=== PATIENT | female | born 1990 | race Caucasian/White ===

== ENCOUNTER 2022-07-21 00:34 | Day surgery (SDC) | payer OTHER, SELFPAY ==
[2022-07-14 10:45] VITALS: BMI 22.1
--- NOTE | 2022-07-14 10:53 | PC.NURSE ---
Report to the Outpatient Waiting Room, entrance under the green pavilion located off [facility], at time 1100 on date 07/21/22. OR Time: 1300. Time changes happen often and if your time is changed the preop area will call you the afternoon before. - You and your visitor will be asked to self-screen and do not enter if you have any COVID symptoms. - Only one visitor and NO children visitors are allowed at this time. - The patient visitor is requested to leave or wait in car when not with patient due to restrictions. - A mask is required within the hospital. Patients may have clear liquids (water, carbonated beverages, clear teas, apple juice) until 3 hours prior to surgery with a maximum of 20 ounces. - No food from midnight until time of surgery Take the following medications with a SIP of water the morning of surgery: SERTRALINE Medications to discontinue per physician: N/A Date to take last dose: N/A Please no make-up, nail burundian, hairspray, perfume, deodorant, or body powder the day of surgery. No jewelry (including any body piercings) or valuables the day of surgery, leave them at home. Please take a shower or bath the night before, or the morning of, surgery with an antibacterial soap. Wear comfortable, loose fitting clothing. - Jewelry must be removed prior to entering the operating room. Rings and piercings that are not removed may be cut off. - The hospital will not accept responsibility for valuables. - Please leave all valuables, including medications, at home the day of surgery. If you are going home after surgery, a licensed bulk delivery driver must drive you home. - NO public transportation without another adult. - We recommend that an adult stay with you for 24 hours following discharge. - We also recommend that you do not drive, make important decision, drink alcoholic beverages, or take any drugs that were not prescribed by your health care provider for at least 24 hours after your discharge time. Follow any additional instructions given to you from your surgeon. If you or anyone in your household have experienced Covid symptoms in the past week, please notify your surgeon or the nurse liaison at the phone number below for possible testing. Telephone instructions given to PT - YANET MERCADO and asked if any additional questions and then verbalized understanding. Patient advised to call surgeon office or pre surgery nurse liaison [phone] if any additional questions.
[2022-07-21] VITALS (9 sets, daily range): BP systolic 112–122; BP diastolic 59–72; PULSE 63–83; RESP 14–18; TEMP 36.8; O2SAT 97–100
[2022-07-21] MEDS: LACTATED RINGERS 1,000 ML 30 ML IV CONT ×2 (11:40→14:52)
--- NOTE | 2022-07-21 12:53 | SUR.PREOP ---
Discussed delay with patient. Voiced understanding.
--- NOTE | 2022-07-21 13:02 | WPDHPUPDATE1 ---
History and Physical Update Update Date/Time: 07/21/22 13:02 History and Physical has been reviewed, including an updated exam of the patient. There are NO changes in the patient's condition. Risks, benefits, and alternatives have been discussed and questions answered. Patient agrees to proceed with procedure.
--- NOTE | 2022-07-21 13:21 | P.OP_ITS ---
Procedure Note - Detailed Date of Procedure 07/21/22 Pre-op Diagnosis Pilo Micromastia,unacceptable cosmetic appearance Post-op Diagnosis Same Procedure Performed 1. Bilateral augmentation mammaplasty 2. Bilateral nipple reduction Surgeon Kong Goodrich MD Anesthesia General Findings Bilateral Ade Denise SoftTouch 375cc Right REF# [id number] SN [id number] Dual plane 3 Left REF# [id number] SN [id number] Dual plane 2 Description of Procedure She is here today for bilateral breast reduction. Previously and again today the risks, benefits, alternatives were discussed in extensive detail. I wanted her to be very realistic about the risks involved as well as expectations. We discussed aftercare and what to monitor for. She understands we can never guarantee final breast size and there will always be asymmetry. She has had some milk production in the past and understands the risks. She is willing to accept and would like to proceed. She also understands she has a degree of glandular laxity. She understands she may have laxity and states she would do a second stage mastopexy if she desires (at her expense). I was very upfront and honest about the risks of sensation change and even nipple loss (). Made sure answered all of her questions to her satisfaction today and consent was obtained. She was marked in the preoperative holding area with their verification. The patient was taken to the operating room placed supine on the operating table. Anesthesia was provided by anesthesiology. She was prepped and draped in a standard sterile fashion. A surgical time-out was taken. Stab incisions were made and I tumessed with a tumescent solution. I marked out the nipple-areolar complex at 42 mm. I then de-epithelialized the pedicle. The pedicle was well left well more than 2 cm in thickness. I then removed the inferior portion of the breast as well as the central keel to get shape based on preoperative planning. At this point copiously irrigated with saline solution and verified a strict hemostasis. I reapproximated the pillars using a 2-0 PDS. I tailor tacked the breast into place with sarah. She was placed in a sitting position. I verified the nipple-areolar complex position based on preoperative markings, intraoperative measurements, and observation which were in full agreement. This nipple-areolar complex was marked at 42 mm in size. I then placed supine and de-epithelialized this. Nipple-areolar complex was inset with 3-0 Monocryl. I closed IMF deep with 1 strattafix. I closed the vertical incision with 3-0 Monocryl in the IMF with 3- 0 stratafix. Then everything was closed using a running subcuticular 4-0 Monocryl followed by Steri-Strips. A 15 blade was used to create fish mouth flap bilateral nipple. Closed with 5-0 Chromic. A dressing was placed followed by surgical bra. Patient was awoke and taken to PACU without difficulty. All instrument sponge counts were correct at the end of the case. Estimated Blood Loss 20 Drains No Packing No Pathology None sent Complications No immediate complications Condition Stable
--- NOTE | 2022-07-21 13:28 | WPDANESEPPF ---
Anes - Initial Pre Proc Eval Procedure: Operation Date: 07/21/22 13:00 Proposed Procedures p Bilateral Breast Augmentation - Kong Goodrich MD s Bilateral Nipple Reduction - Kong Goodrich MD Date/Time: 07/21/22 13:28 Surgeon: Kong Goodrich MD Pre Op Diagnosis: Pilo Micromastia,unacceptable cosmetic appearance Patient Data Age: 31 Gender: F Height: 1.75 m Weight: 68.3 kg Last Vital Signs Temp 98.3 F 07/21/22 11:37 Pulse 65 07/21/22 11:37 Resp 16 07/21/22 11:37 BP 112/59 L 07/21/22 11:37 Pulse Ox 100 07/21/22 11:37 O2 Del Method Room Air 07/21/22 11:37 Allergies Allergy/AdvReac Type Severity Reaction Status Date / Time No Known Allergies Allergy Unverified 07/21/22 11:24 Home Medications Medication Instructions Recorded Confirmed Type sertraline 50 mg tablet (Zoloft) 50 mg PO DAILY 04/16/22 07/21/22 History Patient hx anesthesia problems: none Family hx anesthesia problems: none Results Review: All pre-operative results and documents have been reviewed as part of the pre-operative evaluation. [facility] Surgical History Surgical History (Updated 04/16/22 @ 11:33 by Jael Smith) History of surgery on arm Family History Family History (Updated 04/16/22 @ 11:34 by Jael Smith) Other Diabetes mellitus Skin cancer Throat cancer Social History Social History (Updated 04/16/22 @ 11:34 by Jael Smith) Smoking status: Never smoker Alcohol intake: current Alcohol use details: 3/MONTH Substance use: former Substance use type: marijuana Last use: 06/30/22 Living arrangements: with family Spiritual care concerns: No Anes - Eval Final PreProcedure Day of Procedure 07/21/22 13:28 Patient weight: normal Heart: regular rate and rhythm Lungs: clear to auscultation Airway: Mallampati scale class II Neurological: alert and oriented Last oral intake: >/= 8 hours ASA classification: II Emergent: no Anesthetic plan: proceed Anesthesia type and monitoring: general LMA and standard monitoring Results Review: All pre-operative results and documents have been reviewed as part of the pre-operative evaluation. Informed Consent: The patient's anesthetic plan and its attendant risks and benefits were discussed with the patient/family/POA. Questions were solicited and answers provided to the satisfaction of the patient/family/POA.
[2022-07-21] MEDS: ceFAZolin 2 GM/D5W 50 ML 2 GM/50 ML BAG IVPB (13:39)
[2022-07-21] MEDS: BUPIVACAINE HCL 0.25% PF 30 ML VIAL INFILTRATE (13:49)
[2022-07-21] MEDS: TRANEXAMIC ACID 1,000MG/ISO100 1,000 MG/100 ML BAG 200 MG IVPB (13:57)
[2022-07-21] MEDS: LIDO 1%/EPINEPHRINE 1:100,000 10 ML VIAL 30 ML INFILTRATE (14:11)
[2022-07-21] MEDS: fentaNYL CITRATE INJ (*CRX) 100 MCG/2 ML VIAL 25 MCG IV PUSH ×4 (15:15→15:35)
[2022-07-21] MEDS: oxyCODONE HCL (*CRX) 5 MG TAB IR PO (16:22)
== END 2022-07-21 17:04 | disposition home or self-care (01) ==
PROVIDERS: Visit Provider Surgery Plastic and Reconstructive Surgery
PROC: (CPT 19325; principal; 2022-07-21 13:00)
PROC: (CPT 19350; 2022-07-21 13:00)
DX: Z41.1 Encounter for cosmetic surgery (principal); N64.82 Hypoplasia of breast
CPT/HCPCS: 19325; 19499; A9270; J0690; J1100; J1170; J1580; J2250; J2405; J2704; J3010; J7120